=== PATIENT | female | born 1980 | race Hispanic/Latino ===

== ENCOUNTER 2018-03-30 14:29 | Outpatient (CLI) | payer BC | END 2018-03-30 14:30 | disposition home or self-care (01) | LOC: BICULT 14:29 | PROVIDERS: ATTEND Family Medicine | DX: Z34.92 Encounter for supervision of normal pregnancy, unspecified, second trimester (principal); Z3A.19 19 weeks gestation of pregnancy | CPT/HCPCS: 76805 ==

== ENCOUNTER 2018-06-07 14:29 | Outpatient (CLI) | payer BC ==
--- NOTE | 2018-06-07 15:55 | ULT ---
OB ULTRASOUND: 06/07/18 HISTORY: Low lying placenta. COMPARISON: 03/30/18 exam. Real time imaging of the pelvis shows a single viable intrauterine which is in the cephalic presentation. heart rate is 120 beats per minute. Amniotic fluid is judged to be adequate for this stage of . The amniotic fluid index is 17.3. The placenta is posterior in location. It is low lying. An endovaginal examination was actually perfo rmed. On the endovaginal portion of the study, the cervical canal length is approximately 3.6 cm. The margin of the placenta is very close to the cervical os, only approximately 1 to 2 cm away depending on the area that is measured. measurements are as follows: BPD 6.5 cm 26 weeks, 2 days Head circumference 25.5 cm 27 weeks, 6 days Abdominal circumference 26.6 cm 30 weeks, 5 days Femur length 5.5 cm 29 weeks, 2 days IMPRESSION: 1. Single viable intrauterine in the cephalic presentation. Overall measurements corre sponding to a gestational age of 28 weeks, 4 days. Estimated date of delivery 08/26/18. Of note, the h ead circumference and BPD measurements are slightly lower than abdominal circumference and femur leo th measurements on this examination, but in reviewing the previous 03/30/18 study, there is much close r range of measurements and some of this may have just been related to the head position. 2. Low lying placenta lying very close to the cervical os as described above. POS: [facility]
== END 2018-06-07 14:30 | disposition home or self-care (01) ==
LOC: BICULT 14:29
PROVIDERS: ATTEND Family Medicine
DX: Z34.93 Encounter for supervision of normal pregnancy, unspecified, third trimester (principal); Z3A.28 28 weeks gestation of pregnancy; O44.43 Low lying placenta NOS or without hemorrhage, third trimester
CPT/HCPCS: 76805

== ENCOUNTER 2018-07-03 09:26 | Day surgery (SDC) | payer BC ==
[2018-07-03 09:51] VITALS: BP 132/90; TEMP 98
[2018-07-03 09:52] VITALS: BMI 39.6
--- NOTE | 2018-07-03 12:05 | ULT ---
ULTRASOUND BIOPHYSICAL PROFILE: Date: 07/03/18 HISTORY: Gestational hypertension. FINDINGS: A single, live intrauterine gestation is seen, with a heart rate of 125 beats/minute. CATHRYN measu res 12.2 cm. Biophysical Profile: tone: 2 breathin movement: 2 Amniotic fluid: 2 IMPRESSION: Ultrasound biophysical profile score is 8 out of 8. POS: [facility]
== END 2018-07-03 11:55 | disposition home or self-care (01) ==
LOC: L&D/OP 09:26
PROVIDERS: ATTEND Family Medicine
DX: O13.9 Gestational [pregnancy-induced] hypertension without significant proteinuria, unspecified trimester (principal); Z79.82 Long term (current) use of aspirin; Z79.899 Other long term (current) drug therapy; Z88.8 Allergy status to other drugs, medicaments and biological substances
CPT/HCPCS: 59025; 76819; 99281

== ENCOUNTER 2018-07-06 09:34 | Day surgery (SDC) | payer BC ==
[2018-07-06 10:18] VITALS: BMI 39.6
[2018-07-06 10:27] VITALS: BP 132/88; TEMP 98.4
[2018-07-06 12:11] LABS: #Basophils 0.1 thou/uL (0.0-0.2); #Eosinphils 0.1 thou/uL (0.0-0.7); #Lymphocytes 2.2 thou/uL (1.20-3.40); #Monocytes 0.7 thou/uL (0.11-0.59); #Neutrophils 6.3 thou/uL (1.40-6.50); %Basophils 0.7 % (0.0-1.0); %Eosinophils 0.8 % (0.0-10.0); %Lymphocytes 23.5 % (21.0-51.0); %Monocytes 7.9 % (0.0-10.0); %Neutrophils 67.2 % (42.0-75.0); Hemoglobin 13.1 g/dL (12.0-16.0); Mean Corpuscular HGB CONC 34.7 g/dL (32.0-36.0); Mean Corpuscular Hemoglobin 31.8 pg (27.0-31.0); Mean Corpuscular Volume 91.8 fL (78.0-98.0); Mean Platelet Volume 9.9 fL (7.4-10.4); Platelet Count 176 thou/uL (130-400); RBC Distribution Width 11.8 % (11.5-14.5); Red Blood Cell (RBC) Count 4.11 mill/uL (4.20-5.40); White Blood Cell (WBC) Count 9.4 thou/uL (4.8-10.8)
[2018-07-06 12:42] LABS: Creatinine, Urine 74.75 mg/dL (47-110); Protein, Urine Random Quant Less than 10 mg/dL (1-14)
[2018-07-06 12:44] LABS: ALT (SGPT) 13 U/L (8-55); AST (SGOT) 15 U/L (5-34); Albumin 3.6 g/dL (3.5-5.0); Alkaline Phosphatase 102 U/L (40-150); Anion Gap 13 mmol/L (10-20); BUN (Urea Nitrogen) 4 mg/dL (7.0-18.7); Bilirubin, Total 0.4 mg/dL (0.2-1.2); Calc. Creatinine Clearance 190 mL/min (70-130); Calcium 9.5 mg/dL (7.8-10.44); Carbon Dioxide 22 mmol/L (22-29); Chloride 104 mmol/L (98-107); Estimated GFR-MDRD Greater than 90; Glucose 73 mg/dL (70-105); LDH 160 U/L (125-220); Potassium 3.6 mmol/L (3.5-5.1); Protein, Total 6.6 g/dL (6.0-8.3); Sodium 135 mmol/L (136-145); Uric Acid Less than 2.0 mg/dL (2.6-6.0)
--- NOTE | 2018-07-06 20:53 | PRG ---
DATE OF SERVICE: 07/06/2018 PRIMARY ENVIRONMENTAL ASSOCIATE: Philippe Mcgregor MD CHIEF COMPLAINT: Follow up on PIH. HISTORY OF PRESENT ILLNESS: The patient is a 37-year-old female, who is being followed by Dr. Philippe Mcgregor with this complicated by PIH. As her physician is out of town, she was instructed to come to Labor and Delivery for evaluation and a scheduled NST. The patient has no complaints. She denies headaches, chest pain, shortness of breath, or right upper quadrant tenderness. OBJECTIVE: VITAL SIGNS: Blood pressure during her stay ranged from 121/75 to 150/90; over the course of 2 hours, heart rate in the 70s; and respiratory rate of 18. GENERAL: She appears to be in no acute distress. She is alert, oriented, cooperative, pleasant to interact with. HEAD: Normocephalic and atraumatic. LUNGS: Clear to auscultation bilaterally. HEART: Has regular rate and rhythm. EXTREMITIES: Have minimal edema and symmetrical. LABORATORY DATA: heart tones are in the 120s with moderate long-term variability, positive 15 x 15 accelerations, no decelerations. Tocometer shows some irritability, but not felt by the patient. Lab work scheduled for July 03 has not been drawn, so we james her scheduled labs today and they were as follows. White count of 9.4, hemoglobin 13.1, hematocrit 37.8, platelets of 176,000. Creatinine 0.63, uric acid less than 2. AST of 15, ALT of 13, LDH of 160. Urine protein to creatinine ratio unable to calculate as the patient has no detectable protein in her urine. ASSESSMENT AND PLAN: The patient is a 37-year-old female with an intrauterine at 34 weeks and 2 days, here for evaluation of -induced hypertension. The patient's blood pressures continued to stay in the mild range. She has no laboratory evidence of worsening disease. Fetus has a category I tracing, reactive NST. In reviewing her records, the patient is noted to have a blood type of O negative and no evidence of being given RhoGAM according to clinic, the nursing staff there is confirmed that she has not received RhoGAM with this . Having discover this, we have given the patient RhoGAM dose here. The patient is being discharged to home. She has instructions to follow up with her primary OB on the . Job ID: [id number]
== END 2018-07-06 13:05 | disposition home health service (06) ==
LOC: L&D/OP 09:34
PROVIDERS: ATTEND Family Medicine
DX: O13.3 Gestational [pregnancy-induced] hypertension without significant proteinuria, third trimester (principal); Z3A.34 34 weeks gestation of pregnancy; Z79.899 Other long term (current) drug therapy; Z88.8 Allergy status to other drugs, medicaments and biological substances
CPT/HCPCS: 36415; 59025; 80053; 82570; 83615; 84156; 84550; 85025; 90384; 96372; 99284

== ENCOUNTER 2018-07-18 13:14 | Day surgery (SDC) | payer BC ==
[2018-07-18 14:10] VITALS: BMI 39.6
[2018-07-18 14:19] VITALS: BP 146/88; TEMP 98.6
[2018-07-18 14:46] LABS: #Eosinphils 0.1 thou/uL (0.0-0.7); #Lymphocytes 1.8 thou/uL (1.20-3.40); #Monocytes 0.8 thou/uL (0.11-0.59); #Neutrophils 7.8 thou/uL (1.40-6.50); %Basophils 0.4 % (0.0-1.0); %Eosinophils 0.5 % (0.0-10.0); %Lymphocytes 17.1 % (21.0-51.0); %Monocytes 7.3 % (0.0-10.0); %Neutrophils 74.7 % (42.0-75.0); Mean Corpuscular HGB CONC 34.8 g/dL (32.0-36.0); Mean Corpuscular Hemoglobin 31.7 pg (27.0-31.0); Mean Corpuscular Volume 90.9 fL (78.0-98.0); Mean Platelet Volume 9.4 fL (7.4-10.4); Platelet Count 202 thou/uL (130-400); Red Blood Cell (RBC) Count 3.79 mill/uL (4.20-5.40); White Blood Cell (WBC) Count 10.4 thou/uL (4.8-10.8)
[2018-07-18 15:05] LABS: ALT (SGPT) 14 U/L (8-55); AST (SGOT) 13 U/L (5-34); Albumin 3.4 g/dL (3.5-5.0); Alkaline Phosphatase 121 U/L (40-150); Anion Gap 12 mmol/L (10-20); BUN (Urea Nitrogen) 6 mg/dL (7.0-18.7); Bilirubin, Total 0.4 mg/dL (0.2-1.2); Calc. Creatinine Clearance 193 mL/min (70-130); Calcium 9.4 mg/dL (7.8-10.44); Carbon Dioxide 23 mmol/L (22-29); Chloride 104 mmol/L (98-107); Estimated GFR-MDRD Greater than 90; Globulin 2.5 g/dL (2.4-3.5); Glucose 97 mg/dL (70-105); Potassium 3.8 mmol/L (3.5-5.1); Protein, Total 5.9 g/dL (6.0-8.3); Sodium 135 mmol/L (136-145)
--- NOTE | 2018-07-18 16:06 | ULT ---
ULTRASOUND BIOPHYSICAL PROFILE: 07/18/18 HISTORY: 37-year-old female with maternal hypertension, third trimester. FINDINGS: breathin tone: 2 movement: 2 Amniotic fluid volume: 2 heart rate: 131 bpm. lie: Vertex. Placenta: Posterior. Amniotic fluid: CATHRYN = 8.5 cm. IMPRESSION: Normal biophysical profile score of 8/8, excluding the non-stress test. wally [] POS: [facility]
== END 2018-07-18 16:40 | disposition home or self-care (01) ==
LOC: L&D/OP 13:14
PROVIDERS: ATTEND Family Medicine
DX: O16.3 Unspecified maternal hypertension, third trimester (principal); Z79.82 Long term (current) use of aspirin; Z79.899 Other long term (current) drug therapy; Z88.8 Allergy status to other drugs, medicaments and biological substances
CPT/HCPCS: 36415; 76819; 80053; 82570; 84156; 85025

== ENCOUNTER 2018-07-25 20:00 | Inpatient (IN) | payer BC ==
[2018-07-25] MEDS ORDERED: Acetaminophen 500 MG TAB PO PRN (21:30)
[2018-07-25] MEDS ORDERED: Promethazine HCl 25 MG/ML VIAL IM PRN (21:30)
[2018-07-25] MEDS ORDERED: Zolpidem Tartrate 5 MG TAB PO PRN (21:30)
[2018-07-25] MEDS ORDERED: NS w/ Oxytocin 10 units 500 ML IV SCH (21:30)
[2018-07-25] MEDS ORDERED: Misoprostol 200 MCG TAB PR PRN (21:30)
[2018-07-25] MEDS ORDERED: Ondansetron PF 4 MG/2 ML Vial IVP PRN (21:30)
[2018-07-25] MEDS ORDERED: HYDROcodone/Acetaminophen 5/325 mg Tablet PO PRN (21:30)
[2018-07-25] MEDS ORDERED: NS / Oxytocin 40 units/1000ml 1,000 ML IV PRN (21:30)
[2018-07-25] MEDS ORDERED: Lidocaine 1% (PF) 30 ML VIAL SC PRN (21:30)
[2018-07-25] MEDS: Lactated Ringer's 1,000 ML IV SCH (21:50)
[2018-07-25 21:54] LABS: Hemoglobin 12.8 g/dL (12.0-16.0); Mean Corpuscular Hemoglobin 31.6 pg (27.0-31.0); Mean Corpuscular Volume 90.3 fL (78.0-98.0); Mean Platelet Volume 9.6 fL (7.4-10.4); Platelet Count 212 thou/uL (130-400); RBC Distribution Width 11.9 % (11.5-14.5); Red Blood Cell (RBC) Count 4.04 mill/uL (4.20-5.40); White Blood Cell (WBC) Count 10.5 thou/uL (4.8-10.8)
[2018-07-25 21:57] VITALS: BMI 40.2
[2018-07-25] MEDS: Misoprostol 100 MCG TAB VAG SCH (22:08)
[2018-07-25 22:34] LABS: Syphilis Antibody Nonreactive (Nonreactive); Syphilis Antibody Index 0.02 S/CO (<1.00 Non-Reactive)
[2018-07-25 23:09] LABS: HBSAg Index 0.14 S/CO (0-0.99); Hep B Surf Ag Non-Reactive S/CO (NonReactive)
[2018-07-26] MEDS: Misoprostol 100 MCG TAB VAG SCH ×2 (01:14→04:12)
--- NOTE | 2018-07-26 01:42 | HP ---
HISTORY OF PRESENT ILLNESS: This is a 37-year-old Latin-Polish female, G1, P0, at 37 weeks gestation with EDC of 08/15/2018, who is being admitted for an induction for PIH. The patient through her has had an elevated blood pressure. She was placed on strict bed rest and has done well. She has been receiving weekly BPP and NST, which have been 10/10. Her blood pressures have fluctuated between 150 to 170 over 90 to 100, sitting, and from 130s to 140s over 70s to 80s supine. She has had occasional headaches. She has had no photophobia, nausea, vomiting, chest pain, abdominal pain, and normal reflexes. She is being admitted for early PIH injection. PAST MEDICAL HISTORY: Unremarkable. ALLERGIES: QUESTIONABLE TO ACETAMINOPHEN, WHICH MAY CAUSE HIVES. PAST SURGICAL HISTORY: Include, 1997 appendicitis, 2009 cyst removal right ovary, and 2014 cyst removal right fallopian tube. FAMILY HISTORY: Father with diabetes and hypertension. Mother with diabetes, hypertension, and cervical cancer. SOCIAL HISTORY: She is . She works for [employer] at [employer], and has no children. She does not smoke or drink. REVIEW OF SYSTEMS: As above. PHYSICAL EXAMINATION: VITAL SIGNS: Blood pressure 136/80. HEENT: Clear. HEART: Regular rate and rhythm. LUNGS: Clear. ABDOMEN: Soft, gravid. Cervix in the office was 1 cm anterior, DTRs 1+. LABORATORY DATA: GBS negative. H and H 12 and 34. Comprehensive is normal, 24-hour urine was negative for protein. HIV negative. One-hour GTT 96. HPV negative. Paps are normal. GC, chlamydia negative. panel negative. Thyroid normal. Hepatitis B negative. RPR negative. Rubella immune. O negative blood type. ASSESSMENT: 1. 37-week intrauterine . 2. induced hypertension. 3. O negative blood type. PLAN: 1. Routine anesthesia orders. 2. Routine L and D orders. 3. Cytotec/Pitocin induction. 4. Monitor blood pressures. 5. RhoGAM . RhoGAM was given earlier in . Job ID: [id number]
[2018-07-26] MEDS: Lactated Ringer's 1,000 ML IV SCH ×3 (04:22→19:34)
[2018-07-26 07:22] LABS: Protein, Urine Random Quant Less than 10 mg/dL (1-14)
[2018-07-26] MEDS: hydrALAZINE 20 MG/ML VIAL SLOW IVP PRN ×3 (09:46→21:55)
[2018-07-26] MEDS ORDERED: Fentanyl 4 mcg/Bup 0.1% Cadd 100 ML ONE ×2 (10:56→18:26)
[2018-07-26] MEDS ORDERED: Lidocaine 1.5%/Epinephrine 1:200,000 5 ML AMPUL IJ ONE (10:57)
[2018-07-26] MEDS ORDERED: Eucerin (Mineral Oil/Petrolatum,White) 30 gm Jar TOP PRN (14:44)
[2018-07-26] MEDS ORDERED: ePHEDrine/0.9% NaCl/PF SYRINGE 50 mg/10 ml SLOW IVP PRN (14:44)
[2018-07-26] MEDS ORDERED: Naloxone HCl 0.4 mg/ml Vial IVP PRN ×2 (14:44)
[2018-07-26] MEDS ORDERED: Lactated Ringer's 500 ML IV PRN (14:44)
[2018-07-26] MEDS ORDERED: Promethazine HCl 25 MG/ML VIAL IM PRN (14:44)
[2018-07-26] MEDS ORDERED: Ondansetron PF 4 MG/2 ML Vial IVP PRN (14:44)
[2018-07-26] MEDS ORDERED: diphenhydrAMINE 50 MG/ML VIAL IVP PRN (14:44)
[2018-07-26] MEDS ORDERED: Communication Order-Pharmacy FS SCH (14:45)
[2018-07-26] MEDS ORDERED: Fentanyl 4 mcg/Bupivacaine 0.1% Cassette 100 ML EPIDURAL SCH (14:45)
--- NOTE | 2018-07-26 21:23 | PRG ---
DATE OF SERVICE: 07/26/2018 TIME OF EVALUATION: 2140 hours until 0. LOCATION: Labor and Delivery in LDR 1. REQUESTING PHYSICIAN: Philippe Mcgregor MD REASON FOR EVALUATION: patient with suspected hemorrhage. BRIEF HISTORY: In brief, this patient just delivered with Dr. Philippe Mcgregor in LDR 1, who discussed with me that she had had an estimated blood loss of about 750 to 800 mL. Cytotec has already been given (800 mcg) to aid in uterine tone. I evaluated the patient about 1 minute after being called and found no active bleeding. I used a Graves bivalve speculum to inspect the vaginal sidewalls and I find no evidence of sidewall injury. The cervix does not have any active bleeding laceration, requiring repair. On perineal inspection, there is a repaired small perineal laceration, but it is hemostatic. By the time that I evaluated the patient, the bleeding had greatly decreased. As there was no active bleeding now on my perineal/vaginal tract inspection, and the uterus is now firm, I placed a Mcrae for uterine drainage. I have recommended tranexamic acid at 1 g IV if the QBL is at or above 1000 mL, per ACOG criteria for management of bleeding. The patient is alert and oriented and doing well, and appears to be hemodynamically stable at this time. Job ID: [id number]
[2018-07-26] MEDS ORDERED: Milk Of Magnesia 30 ML UDCUP PO PRN (21:38)
[2018-07-26] MEDS ORDERED: Lanolin Ointment 7 GM TUBE TOP PRN (21:38)
[2018-07-26] MEDS ORDERED: Acetaminophen/Codeine 30-300mg Tablet PO PRN (21:38)
[2018-07-26] MEDS ORDERED: Bisacodyl 10 MG SUPP PR PRN (21:38)
[2018-07-26] MEDS ORDERED: NS / Oxytocin 40 units/1000ml 1,000 ML IV SCH (21:38)
[2018-07-26] MEDS ORDERED: Benzocaine/Menthol 20-0.5% 60 ML CAN TOP PRN (21:38)
[2018-07-27] MEDS: Misoprostol 100 MCG TAB VAG SCH (02:29)
--- NOTE | 2018-07-27 02:40 | OP ---
DATE OF PROCEDURE: 07/26/2018 PREOPERATIVE DIAGNOSIS: 37-week with -induced hypertension. POSTOPERATIVE DIAGNOSIS: 37-week with -induced hypertension. PROCEDURES: Spontaneous vaginal delivery with repair of 5 cm left vaginal wall laceration and second-degree midline laceration. ANESTHESIA: Epidural. DESCRIPTION OF PROCEDURE: This is a 37-year-old female, G1, P0, taken to the delivery room, complaining of pushing. Prepped and draped sterilely. Delivered a baby boy with Apgars 9 at 1 minute and 9 at 5 minutes. Baby did breathe and cry vigorously upon delivery. Delivered the placenta and three-vessel intact. Repaired the left vaginal wall laceration with 3-0 chromic and a midline second degree with 3-0 chromic. The patient had persistent oozing and 800 Cytotec rectally was given. She continued to have some oozing. Her lacerations had adequate hemostasis. There is no visible cervical lacerations present. Dr. Murcia was called in for assistance. He found no source of bleeding. Estimated blood loss was calculated at 670 mL. The patient is doing well at this time. Uterus is firm. We will continue to monitor. Job ID: [id number]
[2018-07-27 06:35] LABS: Hemoglobin 11.4 g/dL (12.0-16.0); Mean Corpuscular HGB CONC 34.9 g/dL (32.0-36.0); Mean Corpuscular Hemoglobin 31.8 pg (27.0-31.0); Mean Corpuscular Volume 91.1 fL (78.0-98.0); Mean Platelet Volume 9.3 fL (7.4-10.4); Platelet Count 183 thou/uL (130-400); Red Blood Cell (RBC) Count 3.58 mill/uL (4.20-5.40); White Blood Cell (WBC) Count 18.3 thou/uL (4.8-10.8)
[2018-07-27] MEDS: Docusate Calcium (SURFAK) 240 MG CAP PO SCH ×2 (08:49→22:45)
[2018-07-27] MEDS: Prenatal Vitamin 1 TAB PO SCH (08:49)
[2018-07-27] MEDS: Ferrous Sulfate 325 MG TAB PO SCH ×2 (08:51→18:08)
[2018-07-27] MEDS: Lactated Ringer's 1,000 ML IV SCH ×4 (08:51→23:01)
[2018-07-27] MEDS ORDERED: Adacel (T-DAP) 0.5 ML SYRINGE IM ONE (09:00)
--- NOTE | 2018-07-27 14:58 | PRG ---
DATE OF SERVICE: 07/27/2018 SUBJECTIVE: The patient is doing well this morning. No complaints of chest pain or headaches. Trying to breast feed. OBJECTIVE: VITAL SIGNS: Temperature 99.0, pulse 89, respirations 20, pulse ox 96%, and blood pressure 125/62. HEART: Regular rate and rhythm. LUNGS: Clear. ABDOMEN: Soft. : Uterus firm, minimal lochia. LABORATORY DATA: Hemoglobin and hematocrit went from 12.8/36.5 to 11.4/32.6. ASSESSMENT: 1. A 37-week intrauterine , status post spontaneous vaginal delivery. 2. -induced hypertension. PLAN: 1. Routine care. 2. Encourage breast-feeding. 3. Observe for another 24 hours. Baby is early at approximately 37 weeks. Encouraging breast-feeding. Job ID: [id number]
[2018-07-28 08:11] VITALS: BP 146/70; TEMP 98.3
[2018-07-28] MEDS: Prenatal Vitamin 1 TAB PO SCH (08:54)
[2018-07-28] MEDS: Docusate Calcium (SURFAK) 240 MG CAP PO SCH (08:54)
[2018-07-28] MEDS: Ferrous Sulfate 325 MG TAB PO SCH (08:57)
--- NOTE | 2018-07-28 09:44 | DIS ---
DATE OF ADMISSION: 07/25/2018 DATE OF DISCHARGE: 07/28/2018 DISCHARGE DIAGNOSES: 1. 37-week intrauterine . 2. -induced hypertension. 3. bleeding. DISCHARGE MEDICATIONS: 1. vitamins. 2. Iron. BRIEF HISTORY: This is a 37-year-old Latin-[place] female, G1, P0, at 37 weeks, presented for Cytotec/Pitocin induction for PIH. The patient had been running high blood pressures over the past month. It had been controlled with strict bed rest. A 24-hour urine for protein was negative. Her blood pressures on admission were approximately 140 to 150/90. HOSPITAL COURSE: The patient progressed in labor. She began complete pushing. She underwent a normal vaginal delivery. She did have some small bleeding. QBL was noted to be approximately 800 mL. H and H remained stable. The patient did very well. She is now ready for discharge. Baby is also doing well. Dr. Murcia was called in to assess the bleeding, however, it was relatively under control. Job ID: [id number]
[2018-07-28] MEDS ORDERED: Bupivacaine HCl 0.25%/Epi 0.0005/PF 10 ML VIAL FS ONE (11:11)
== END 2018-07-28 13:45 | disposition home or self-care (01) | DRG 807 ==
LOC: L&D 21:14 → 3SE 07-27 01:47
PROVIDERS: ADMIT Family Medicine; ATTEND Family Medicine
PROC: 10E0XZZ Delivery of Products of Conception, External Approach (ICD-10-PCS; principal; 2018-07-26)
PROC: 0KQM0ZZ Repair Perineum Muscle, Open Approach (ICD-10-PCS; 2018-07-26)
PROC: 0UQGXZZ Repair Vagina, External Approach (ICD-10-PCS; 2018-07-26)
PROC: 0WJNXZZ Inspection of Female Perineum, External Approach (ICD-10-PCS; 2018-07-26)
PROC: 10907ZC Drainage of Amniotic Fluid, Therapeutic from Products of Conception, Via Natural or Artificial Opening (ICD-10-PCS; 2018-07-26)
PROC: 3E033VJ Introduction of Other Hormone into Peripheral Vein, Percutaneous Approach (ICD-10-PCS; 2018-07-26)
PROC: 3E0P7VZ Introduction of Hormone into Female Reproductive, Via Natural or Artificial Opening (ICD-10-PCS; 2018-07-26)
DX: O13.4 Gestational [pregnancy-induced] hypertension without significant proteinuria, complicating childbirth (principal); Z37.0 Single live birth; Z3A.37 37 weeks gestation of pregnancy; O70.1 Second degree perineal laceration during delivery; O72.1 Other immediate postpartum hemorrhage; Z88.8 Allergy status to other drugs, medicaments and biological substances
CPT/HCPCS: 36415; 51702; 82570; 84156; 85027; 85461; 86780; 86850; 86870; 86900; 86901; 87340; 90384; 90471; 90686; 90715; 96372; G0008; J0360; J3490